=== PATIENT | female | born 1990 | race American Indian/Alaskan Native ===

== ENCOUNTER 2016-11-22 10:03 | Emergency (ER) | payer SELFPAY ==
[2016-11-22 10:21] VITALS: BP 128/88
--- NOTE | 2016-11-22 10:31 | Emergency Department Report ---
ED Rash HPI - HPI Chief Complaint: Skin Rash Stated Complaint: RASH ON NECK/BILAT UNDERARMS Time Seen by Provider: 11/22/16 10:26 Duration: 3 Days Location: Neck, Chest, Other (axilla area) Suspected Cause: Unknown Rash Symptoms: Yes Itching, No Facial Swelling, No Tongue/Oral Swelling, No Breathing Difficulties, No Choking Sensation, No Wheezing/Dyspnea, No Peeling, No Blistering, No Fever, No Lightheaded, No Malaise, No Myalgias Severity: mild Other History: Patient here reports that she's been having rash to her neck and bilateral chest and axillary area 3 days. She reports that she does not know what caused it. Is using topical anti-itch medication. She has some relief denies any fever or chills . Denies any respiratory difficulties. ED Review of Systems ROS: Stated complaint: RASH ON NECK/BILAT UNDERARMS Other details as noted in HPI Comment: All other systems reviewed and negative Constitutional: denies: chills, fever ENT: denies: ear pain, throat pain, congestion Respiratory: no symptoms reported Cardiovascular: denies: chest pain, palpitations, edema, syncope Skin: rash, pruritus Neurological: denies: headache, weakness, numbness, paresthesias, confusion, abnormal gait, vertigo ED Past Medical Hx - Past Medical History Previous Medical History?: No - Surgical History Past Surgical History?: No - Family History Family history: no significant - Social History Smoking Status: Never Smoker Substance Use Type: None - Medications Home Medications: Home Medications Medication Instructions Recorded Confirmed Last Taken Type Diphenhydramine HCl [Benadryl 25 mg PO Q8H PRN #15 tablet 11/22/16 Unknown Rx Allergy TAB] predniSONE [Deltasone] 50 mg PO QDAY #5 tab 11/22/16 Unknown Rx Rash Exam - Exam General: Vital signs noted. No distress. Alert and acting appropriately. 26-year-old female well-nourished well-developed in no acute distress. HEENT: No Periorbital Edema, No Conjuctival Injection, No Chemosis, No Perioral Edema, No Tongue Edema, No Uvular Edema, No Compromised Airway, No Drooling Lungs: Yes Good Air Exchange, No Wheezes, No Ronchi, No Stridor, No Cough, No Labored Respirations, No Retractions, No Use of Accessory Muscles, No Other Abnormal Lung Sounds Heart: Yes Regular, No Murmur Skin: Yes Maculopapular Rash (scattered sparsely to bilateral chest, right neck and anterior neck, bilateral axilla), Yes Erythema, No Urticarial Rash, No Morbilliform rash, No Bulla(e), No Excoriations, No Weeping, No Tenderness, No Edema, No Encrustations, No Other Other: Positive: Abdomen Normal, Neurologic Normal, Musculoskeletal Normal ED Course Vital Signs 11/22/16 10:10 Temperature 97 F L Pulse Rate 79 Respiratory 18 Rate Blood Pressure 128/88 O2 Sat by Pulse 100 Oximetry - Reevaluation(s) Reevaluation #1: 11/22/16 11:01 given Deltasone 60 mg by mouth and emergency room ED Medical Decision Making - Medical Decision Making ED course: Patient with rash of unknown origin. He is treated with Deltasone 60 mg by mouth in emergency room. Patient was understanding of diagnosis and treatment plan. Discharged home with prescription for prednisone and Benadryl. Struck to her to avoid driving and operating heavy machinery while on Benadryl. Critical care attestation.: If time is entered above; I have spent that time in minutes in the direct care of this critically ill patient, excluding procedure time. ED Disposition Clinical Impression: Rash and nonspecific skin eruption, Pruritus and related conditions Disposition: DISCHARGED TO HOME OR SELFCARE Is pt being admited?: No Does the pt Need Aspirin: No Condition: Stable Instructions: Acute Rash (ED), Itchy Skin (ED) Additional Instructions: keep affected aread clean and dry. Take prednisone as instructed. You can take Benadryl for itching but avoid driving or operating any heavy machinery. F/U Driver/Sales Workers as instructed If you do not have a primary care physician that he can also follow-up with [facility] Prescriptions: Diphenhydramine HCl [Benadryl Allergy TAB] 25 mg PO Q8H PRN #15 tablet PRN Reason: Itching predniSONE [Deltasone] 50 mg PO QDAY #5 tab Referrals: PAM DEXTER MD [Staff Physician] - 3-5 Days [facility] [Outside] - 3-5 Days Forms: Work/School Release Form(ED)
[2016-11-22] MEDS ORDERED: DELTASONE PO ONE (10:57)
== END 2016-11-22 11:13 | disposition home or self-care (01) ==
LOC: ED 10:03
DX: R21 Rash and other nonspecific skin eruption (principal); L29.9 Pruritus, unspecified
CPT/HCPCS: 99282; J7512